=== PATIENT | female | born 2000 | race Hispanic/Latino ===

== ENCOUNTER 2019-11-24 12:11 | Emergency (ER) | payer OTHER, SELFPAY ==
[2019-11-24] MEDS ORDERED: NA CHLORIDE 0.9% 500 ML ONE (13:14)
--- NOTE | 2019-11-24 13:28 | RAD REPORT ---
EXAM DESCRIPTION: US - OB Limited - 11/24/2019 1:09 pm CLINICAL HISTORY: ABD CRAMPING, COMPARISON: No comparisons TECHNIQUE: Limited OB sonography performed. FINDINGS: Single intrauterine gestation is identified. Heart rate is 143 BPM. Placenta is primarily posterior and position with no abruption or marginal hematoma. Amniotic fluid volume is normal. No dedicated anatomic assessment performed. No gross abnormality seen. Internal os is closed. E xternal os is not well visualized. Cervix is at least 2.5 cm in length, possibly longer. Endovaginal sonography was not performed. IMPRESSION: Single grossly normal intrauterine gestation with normal heart rate of 143 BPM. No placenta or amniotic fluid abnormality. Cervical canal is at least 2.5 cm in length but is not optimally visualized at the external os. Inter nal os is closed.
[2019-11-24 13:34] LABS: Absolute Lymphocytes (CBC) 2.3 K/uL (0.7-4.9); Basophils % 0.3 % (0-1.3); Hematocrit 33.8 % (36.0-45.0); Lymphocytes % 20.4 % (15.3-44.8); MPV 9.3 fL (7.6-11.3); RBC Red Blood Cell Count 3.73 M/uL (3.86-4.86)
[2019-11-24 13:34] LABS: Urine Blood 3+ (NEG); Urine Glucose NEGATIVE (NEG); Urine Protein NEGATIVE (NEG); Urine Specific Gravity 1.015 (1.005-1.030); Urine pH 6.5 (5.0-7.0)
[2019-11-24] MEDS ORDERED: CEFTRIAXONE/SWI 1gm 1 GM/10 ML SYR ONE (13:40)
[2019-11-24 14:08] LABS: BUN Blood Urea Nitrogen 7 mg/dL (7-18); Bicarbonate 25 mmol/L (21-32); Glucose Level 117 mg/dL (74-106); HCG, Quantitative 28395 mIU/mL (1-3); Potassium 3.5 mmol/L (3.5-5.1); Sodium Level 139 mmol/L (136-145)
--- NOTE | 2019-11-24 15:17 | ER ---
Nurse's Notes [facility] Name: Taylor Ramos Age: 19 yrs Sex: Female : 2000 Arrival Date: 11/24/2019 Time: 12:11 Bed 23 Private MD: Diagnosis: Threatened Presentation: 11/23 12:17 Chief complaint: Patient states: Vaginal bleeding since today. Dark red with 1 little ca1 blood clot. Abdominal cramping. No history of . 17 weeks . Coronavirus screen: Client denies travel out of the [place] in the last 14 days. At this time, the client does not indicate any symptoms associated with coronavirus-19. Ebola Screen: Patient negative for fever greater than or equal to 101.5 degrees Fahrenheit, and additional compatible Ebola Virus Disease symptoms Patient denies exposure to infectious person. Patient denies travel to an Ebola-affected area in the 21 days before illness onset. No symptoms or risks identified at this time. Initial Sepsis Screen: Does the patient meet any 2 criteria? No. Patient's initial sepsis screen is negative. Does the patient have a suspected source of infection? No. Patient's initial sepsis screen is negative. Risk Assessment: Do you want to hurt yourself or someone else? Patient reports no desire to harm self or others. Onset of symptoms was November 24, 2019. 12:17 Method Of Arrival: Ambulatory ca1 12:17 Acuity: MAIA 3 ca1 Triage Assessment: 13:00 General: Appears in no apparent distress. comfortable, Behavior is calm, cooperative, bp appropriate for age. Pain: Complains of pain in abdomen. EENT: No deficits noted. Neuro: No deficits noted. Cardiovascular: No deficits noted. Respiratory: No deficits noted. GI: No signs and/or symptoms were reported involving the gastrointestinal system. : Reports vaginal bleeding that is. Derm: No deficits noted. Musculoskeletal: No deficits noted. 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 - Social history:: Smoking status: Patient denies any tobacco usage or history of. - Family history:: not pertinent. Screenin:00 Abuse screen: Denies threats or abuse. Denies injuries from another. Nutritional bp screening: No deficits noted. Tuberculosis screening: No symptoms or risk factors identified. Fall Risk None identified. Assessment: 13:00 General: SEE TRIAGE NOTE. PT RETURNED FROM [place] 14:21 Reassessment: ALL CURRENT ORDERS COMPLETED, INITIAL RESULTS INDICATE EARLY GROSSLY bp NORMAL INTRAUTERINE . DISPO PENDING. 15:17 Reassessment: PT D/C HOME AMBULATORY, DX WITH THREATENED . ORTHOSTATICS VS bp UNREMARKABLE. Vital Signs: 12:17 BP 124 / 79; Pulse 102; Resp 16; Temp 98.5(O); Pulse Ox 99% on R/A; Weight 76.2 kg (R); ca1 Height 5 ft. 5 in. (165.10 cm) (R); 13:00 BP 94 / 56; Pulse 79; Resp 16; Pulse Ox 97% ; bp 14:19 BP 95 / 60; Pulse 62; Resp 16; Pulse Ox 100% ; bp 14:50 BP 101 / 61 Supine; Pulse 69; bp 14:52 BP 95 / 55; Pulse 72; Resp 16; Temp 98.5; Pulse Ox 100% ; bp 12:17 Body Mass Index 27.96 (76.20 kg, 165.10 cm) ca1 ED Course: 12:11 Patient arrived in ED. as 12:19 Triage completed. ca1 12:20 Arm band placed on right wrist. ca1 12:28 aDvid Ackerman MD is Attending Physician. karina 13:00 Patient has correct armband on for positive identification. Placed in gown. Bed in low bp position. Call light in reach. Side rails up X2. 13:06 Rocael Velasquez, PIYUSH is Primary Nurse. bp 13:09 US OB Limited In Process Unspecified. EDMS 13:15 Inserted saline lock: 20 gauge in right antecubital area, using aseptic technique. bp Blood collected. 15:16 Rui Bess MD is Referral Physician. karina 15:16 No provider procedures requiring assistance completed. Patient did not have IV access bp during this emergency room visit. Administered Medications: 13:15 Drug: NS 0.9% 1000 ml Route: IV; Rate: 1 bolus; Site: right antecubital; bp 15:17 Follow up: IV Status: Completed infusion; IV Intake: 1000ml bp 13:28 Drug: Rocephin 1 grams Route: IV; Rate: per protocol; Site: right antecubital; bp 15:18 Follow up: IV Status: Completed infusion; IV Intake: 20ml bp Intake: 15:17 IV: 1000ml; Total: 1000ml. bp 15:18 IV: 20ml; Total: 1020ml. bp Outcome: 15:16 Discharge ordered by . karina 15:16 Discharged to home ambulatory. bp 15:16 Condition: stable 15:16 Discharge instructions given to patient, Instructed on discharge instructions, follow up and referral plans. medication usage, Demonstrated understanding of instructions, follow-up care, medications, Prescriptions given X 2. 15:21 Patient left the ED. iw Signatures: Dispatcher [employer] EDMS David Ackerman MD MD cha Martinez, Amelia as Williams, Irene, RN RN iw Rocael Velasquez RN RN bp Acob, Cheryl, RN RN ca1 Corrections: (The following items were deleted from the chart) 12:20 12:17 Chief complaint: Patient states: Vaginal bleeding since today. Dark red with 1 ca1 little blood clot. Abdominal cramping. No history of . ca1
--- NOTE | 2019-11-24 15:17 | EDPHYS ---
Physician Documentation [facility] Name: Taylor Ramos Age: 19 yrs Sex: Female : 2000 Arrival Date: 11/24/2019 Time: 12:11 Bed 23 Private MD: ED Physician David Ackerman HPI: 11/23 12:33 This 19 yrs old Female presents to ER via Ambulatory with complaints of karina Vaginal Bleeding - 17 wks, Abdominal Pain. 12:33 The patient presents with vaginal bleeding that is light. Onset: The symptoms/episode karina began/occurred 2 day(s) ago. Modifying factors: The symptoms are alleviated by nothing, the symptoms are aggravated by nothing. Associated signs and symptoms: The patient has no apparent associated signs or symptoms. Severity of symptoms: At their worst the symptoms were mild, in the emergency department the symptoms are unchanged. The patient is sexually active, reportedly has a single partner. The patient has not experienced similar symptoms in the past. 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 - Social history:: Smoking status: Patient denies any tobacco usage or history of. - Family history:: not pertinent. ROS: 12:33 Constitutional: Negative for fever, chills, and weight loss, Eyes: Negative for injury, karina pain, redness, and discharge, ENT: Negative for injury, pain, and discharge, Neck: Negative for injury, pain, and swelling, Cardiovascular: Negative for chest pain, palpitations, and edema, Respiratory: Negative for shortness of breath, cough, wheezing, and pleuritic chest pain, Abdomen/GI: Negative for abdominal pain, nausea, vomiting, diarrhea, and constipation, Back: Negative for injury and pain, : Negative for injury, bleeding, discharge, and swelling, Skin: Negative for injury, rash, and discoloration, Neuro: Negative for headache, weakness, numbness, tingling, and seizure. 12:33 MS/extremity: Negative for acute changes. Exam: 12:33 Constitutional: This is a well developed, well nourished patient who is awake, alert, karina and in no acute distress. Head/Face: Normocephalic, atraumatic. Eyes: Pupils equal round and reactive to light, extra-ocular motions intact. Lids and lashes normal. Conjunctiva and sclera are non-icteric and not injected. Cornea within normal limits. Periorbital areas with no swelling, redness, or edema. ENT: Nares patent. No nasal discharge, no septal abnormalities noted. Tympanic membranes are normal and external auditory canals are clear. Oropharynx with no redness, swelling, or masses, exudates, or evidence of obstruction, uvula midline. Mucous membranes moist. Neck: Trachea midline, no thyromegaly or masses palpated, and no cervical lymphadenopathy. Supple, full range of motion without nuchal rigidity, or vertebral point tenderness. No Meningismus. Chest/axilla: Normal chest wall appearance and motion. Nontender with no deformity. No lesions are appreciated. Cardiovascular: Regular rate and rhythm with a normal S1 and S2. No gallops, murmurs, or rubs. Normal PMI, no JVD. No pulse deficits. Respiratory: Lungs have equal breath sounds bilaterally, clear to auscultation and percussion. No rales, rhonchi or wheezes noted. No increased work of breathing, no retractions or nasal flaring. Abdomen/GI: Soft, non-tender, with normal bowel sounds. No distension or tympany. No guarding or rebound. No evidence of tenderness throughout. Back: No spinal tenderness. No costovertebral tenderness. Full range of motion. Skin: Warm, dry with normal turgor. Normal color with no rashes, no lesions, and no evidence of cellulitis. MS/ Extremity: Pulses equal, no cyanosis. Neurovascular intact. Full, normal range of motion. Neuro: Awake and alert, GCS 15, oriented to person, place, time, and situation. Cranial nerves II-XII grossly intact. Motor strength 5/5 in all extremities. Sensory grossly intact. Cerebellar exam normal. Normal gait. Psych: Awake, alert, with orientation to person, place and time. Behavior, mood, and affect are within normal limits. Vital Signs: 12:17 BP 124 / 79; Pulse 102; Resp 16; Temp 98.5(O); Pulse Ox 99% on R/A; Weight 76.2 kg (R); ca1 Height 5 ft. 5 in. (165.10 cm) (R); 13:00 BP 94 / 56; Pulse 79; Resp 16; Pulse Ox 97% ; bp 14:19 BP 95 / 60; Pulse 62; Resp 16; Pulse Ox 100% ; bp 14:50 BP 101 / 61 Supine; Pulse 69; bp 14:52 BP 95 / 55; Pulse 72; Resp 16; Temp 98.5; Pulse Ox 100% ; bp 12:17 Body Mass Index 27.96 (76.20 kg, 165.10 cm) ca1 MDM: 12:28 Patient medically screened. [facility] 14:44 Data reviewed: vital signs, nurses notes, lab test result(s), radiologic studies, karina ultrasound. Data interpreted: rn dialysis: not applicable for this patient encounter. rate is 62 beats/min, Pulse oximetry: on room air is 100 %. Test interpretation: by ED physician or midlevel provider: ECG, plain radiologic studies. Counseling: I had a detailed discussion with the patient and/or guardian regarding: the historical points, exam findings, and any diagnostic results supporting the discharge/admit diagnosis, lab results, radiology results, the need for outpatient follow up, for definitive care, an OB/Gyne specialist. Medical screen evaluation completed. EMTALA emergency medical condition absent. Medical screen evaluation completed. EMTALA emergency medical condition absent. Medical screen evaluation completed. EMTALA emergency medical condition absent. ED course: pelvic rest, follow up, return if worse. cont pnf. 11/23 12:33 Order name: Quantitative Hcg; Complete Time: 14:13 karina 11/23 12:33 Order name: Abo/rh Typing; Complete Time: 14:13 karina 11/23 12:33 Order name: Basic Metabolic Panel; Complete Time: 14:13 karina 11/23 12:33 Order name: CBC with Diff; Complete Time: 14:13 karina 11/23 12:33 Order name: Urine Culture [facility] 11/23 13:26 Order name: Urine Dipstick--Ancillary (enter results); Complete Time: 14:13 bd 11/23 12:33 Order name: Urine Test (obtain specimen); Complete Time: 13:25 karina 11/23 12:33 Order name: IV Saline Lock; Complete Time: 13:25 karina 08/03 12:33 Order name: Labs collected and sent; Complete Time: 13:25 karina 11/23 12:33 Order name: NPO; Complete Time: 13:25 karina 11/23 12:33 Order name: US OB Limited; Complete Time: 14:13 karina 11/23 13:26 Order name: Urine --Ancillary (enter results); Complete Time: 14:13 bd 11/23 12:33 Order name: Urine Dipstick-Ancillary (obtain specimen); Complete Time: 13:25 karina 11/23 14:46 Order name: Orthostatics; Complete Time: 15:15 [facility] Administered Medications: 13:15 Drug: NS 0.9% 1000 ml Route: IV; Rate: 1 bolus; Site: right antecubital; bp 15:17 Follow up: IV Status: Completed infusion; IV Intake: 1000ml bp 13:28 Drug: Rocephin 1 grams Route: IV; Rate: per protocol; Site: right antecubital; bp 15:18 Follow up: IV Status: Completed infusion; IV Intake: 20ml bp Disposition: 11/24/19 15:16 Discharged to Home. Impression: Threatened . - Condition is Stable. - Discharge Instructions: Threatened Miscarriage, Vaginal Bleeding During , Second Trimester, First Trimester of , Dbxo-hs-[id number], First Trimester of , Urinary Frequency, Adult, Threatened Miscarriage, Cltd-ow-Nuvd, Pelvic Rest. - Prescriptions for Vitamin 27- 0.8 mg Oral Tablet - take 1 tablet by ORAL route once daily; 30 tablet. Macrobid 100 mg Oral Capsule - take 1 capsule by ORAL route every 12 hours for 7 days; 14 capsule. - Medication Reconciliation Form, Thank You Letter, Antibiotic Education, Prescription Opioid Use form. - Follow up: Private Physician; When: 2 - 3 days; Reason: Recheck today's complaints, Continuance of care, Re-evaluation by your physician. Follow up: Rui Bess; When: 2 - 3 days; Reason: Recheck today's complaints, Re-evaluation by your physician. - Problem is new. - Symptoms have improved. Signatures: Dispatcher [employer] EDDavid Osorio MD MD cha Williams, Irene, RN RN iw Peltier, Brian, RN RN bp Acob, Cheryl RN PIYUSH ca1 Corrections: (The following items were deleted from the chart) 15:21 15:16 11/24/2019 15:16 Discharged to Home. Impression: Threatened . Condition iw is Stable. Discharge Instructions: Threatened Miscarriage, Vaginal Bleeding During , Second Trimester, Threatened Miscarriage, Vjko-ut-Fjxw, Pelvic Rest, First Trimester of , Axls-ps-Zufc, First Trimester of , Urinary Frequency, Adult. Prescriptions for Vitamin 27-0.8 mg Oral Tablet - take 1 tablet by ORAL route once daily; 30 tablet, Macrobid 100 mg Oral Capsule - take 1 capsule by ORAL route every 12 hours for 7 days; 14 capsule. and Forms are Medication Reconciliation Form, Thank You Letter, Antibiotic Education, Prescription Opioid Use. Follow up: Private Physician; When: 2 - 3 days; Reason: Recheck today's complaints, Continuance of care, Re-evaluation by your physician. Follow up: Rui Bess; When: 2 - 3 days; Reason: Recheck today's complaints, Re-evaluation by your physician. Problem is new. Symptoms have improved. karina
[2019-11-24 15:27] VITALS: TEMP 98.5
[2019-11-24 15:30] VITALS: O2SAT 100
[2019-11-24 15:32] VITALS: BP 95/55
== END 2019-11-24 15:21 | disposition home or self-care (01) ==
LOC: ER 12:11
DX: O20.0 Threatened abortion (principal); Z3A.17 17 weeks gestation of pregnancy
CPT/HCPCS: 87088; 85025; 87086; 80048; 36415; 86900; 81025; 86901; 84702; 81003; 76815; J0696; J7040; 96365; 96366; 99284

== ENCOUNTER 2020-04-09 04:46 | Emergency (ER) | payer OTHER ==
--- OUTSIDE RECORDS SUMMARY | 2020-04-09 04:47 | XMS REPORT | Continuity of Care Document ---
:2000 Author Organization [facility] t Address [address] [place] [address] [address] [place] [address] Care Team Providers Name Role Phone Dari Ayon Attending Clinician Problems This patient has no known problems. Allergies, Adverse Reactions, Alerts This patient has no known allergies or adverse reactions. Medications This patient has no known medications. Procedures This patient has no known procedures. Encounters Start End Encounter Admission Attending Care Care Encounter Source Date/Time Date/Time Type Type Clinicians Facility Department ID 2020-04-06 2020-04-06 Routine ROMANA Shen [id number] 13:36:05 14:14:20 Roshunda R METAL SLITTER [id number] Visit REGIONAL [id number] MATERNAL [id number] & CHILD 107 [facility] 2020-03-23 2020-03-23 Routine ROMANA Shen [id number] 12:45:23 13:00:23 Roshunda R METAL SLITTER [id number] Visit REGIONAL [id number] MATERNAL [id number] & CHILD 107 [facility] 2020-03-09 2020-03-09 Routine ROMANA Shen [id number] 13:05:18 13:37:11 Roshunda R METAL SLITTER [id number] Visit REGIONAL [id number] MATERNAL [id number] & CHILD 107 [facility] 2020-02-18 2020-02-18 Routine ROMANA Shen [id number] 09:39:27 10:17:14 Venkatnda R METAL SLITTER [id number] Visit REGIONAL [id number] MATERNAL [id number] & CHILD 107 [facility] 2020-02-05 2020-02-05 Telephone [facility] [id number] 00:00:00 00:00:00 Venkatnda R METAL SLITTER [id number] REGIONAL [id number] MATERNAL [id number] & CHILD 107 [facility] 2020-02-04 2020-02-04 Telephone [facility] [id number] 00:00:00 00:00:00 Venkatnda R METAL SLITTER [id number] [facility] [id number] MATERNAL [id number] & CHILD 107 [facility] Results This patient has no known results.
--- OUTSIDE RECORDS SUMMARY | 2020-04-09 04:47 | XMS REPORT | Summary of Care ---
:1999 Author Organization [facility] Address [address] [place] [address] Care Team Providers Name Role Phone Dari Shen Primary Care Provider Reason for Visit Reason Comments ROUTINE VISIT Encounter Details Date Type Department Care Team Description 02/03/2020 Routine [facility] RMP- Nohelia Shen upervision of high risk , antepartum (Primary Dx); Visit AMY Weller Primigravida in second trimester; [address] Flu vacci ne need; [address] Overweight (BMI 25.0-29.9) [place] [address] [phone] Allergies No Known Allergiesdocumented as of this encounter (statuses as of 02/03/2020) Medications Medication Sig Dispensed Refills Start Date End Date Status vit Take 1 Packet by 30 Each 6 11/06/2019 Active 77-imcq-ifdnv-dha mouth daily. (SELECT-OB + DHA) 29 mg iron-1 mg -250 mg combo packIndications: Supervision of high risk , antepartum documented as of this encounter (statuses as of 02/03/2020) Active Problems Problem Noted Date Gonorrhea in 09/19/2019 Rubella non-immune status, antepartum 2019 Overview: Address in Maternal varicella, non-immune 2019 Overview: Address in Screening examination for venereal disease 2019 Chlamydia infection during 2019 Supervision of high risk , antepartum 020 Primigravida in second trimester 09/16/2019 History of asthma 09/16/2019 Former smoker 09/16/2019 Overweight (BMI 25.0-29.9) 09/16/2019 Estimated Date of Delivery Comments Yes 05/02/2020 Based on last menstr ual period of 07/27/2019 (Approximate) documented as of this encounter (statuses as of 02/03/2020) Resolved Problems Problem Noted Date Resolved Date Gonorrhea 2019 09/19/2019 documented as of this encounter (statuses as of 02/03/2020) Immunizations Name Administration Dates Next Due BCG 1999 DTAP 10/30/2003, 11/18/2001 DTP 03/22/2000, 01/17/2000, 1999 HEPATITIS A 11/25/2009, 06/09/2008 HIB 4 Dose Schedule 11/18/2001, 03/22/2000, 01/17/2000, 1999 HPV 11/07/2011, 02/03/2010, 11/25/2009 Hep B, Adol or Pedi Dosage 03/22/2000, 01/17/2000, 0 Influenza Virus Vaccine Quad .5 mL IM 02/03/2020 6+ MO Influenza Virus Vaccine Quad IM 3+ YRS 05/12/2015 MMR 10/30/2003, 11/27/2000 Meningococcal Vaccine 11/07/2011 Polio (IPV/OPV) 10/30/2003, 03/22/2000, 01/17/2000, 1999, 1999 TDAP 11/07/2011 Varicella (varivax)(chicken pox) 06/09/2008, 07/27/2003 documented as of this encounter Social History Tobacco Use Types Packs/Day Years Used Date Never Smoker Smokeless Tobacco: Never Used Alcohol Use Drinks/Week oz/Week Comments No Estimated Date of Delivery Comments Yes 05/02/2020 Based on last menstr ual period of 07/27/2019 (Approximate) Sex Assigned at Date Recorded Not on file COVID-19 Exposure Response Date Recorded In the last month, have you been in contact with No / Unsure 02/03/2020 10:05 AM CDT someone who was confirmed or suspected to have Coronavirus / COVID-19? documented as of this encounter Last Filed Vital Signs Vital Sign Reading Time Taken Comments Blood Pressure 104/60 02/03/2020 10:05 AM CDT Pulse 68 02/03/2020 10:05 AM CDT Temperature 36.5 C (97.7 F) 02/03/2020 10:05 AM CDT Respiratory Rate 16 02/03/2020 10:05 AM CDT Oxygen Saturation - - Inhaled Oxygen Concentration - - Weight 84.9 kg (187 lb 1.6 oz) 02/03/2020 10:05 AM CDT Height 165.1 cm (5' 5") 02/03/2020 10:05 AM CDT Body Mass Index 31.14 02/03/2020 10:05 AM CDT documented in this encounter Progress Notes Nohelia Shen, PIN PULLER - 02/03/2020 9:45 AM CDT Chief complaint: Chief Complaint Patient presents with ROUTINE VISIT HPI CC: Follow Up Visit Taylor Victor is a 19 year old, , /White female. Patient's last menstrual period was 07/27/2019 (approximate). She is 27w2d with an intrauterine . Her estimated date of delivery is 05/02/2020, by Last Menstrual Period. She has no complaints today. She reports +FM and denies contractions, LOF and bleeding today. Will review labs and f/u as needed. OB/ER, PIH, PTL and movement precautions given. .abuuse Histories OB History Para Term AB Living 1 SAB TAB Ectopic Multiple Live Births # Outcome Date GA Lbr Dano/2nd Weight Sex Delivery Anes PTL Lv 1 Current Past Medical History: Diagnosis Date Asthma last flare up at age 15 yrs of age. Gonorrhea 2019 Screening examination for venereal disease 2019 Family History Problem Relation Age of Onset Hypertension Maternal Grandmother No Significant Medical Problems Mother No Significant Medical Problems Father No Significant Medical Problems Sister No Significant Medical Problems Brother Arthritis NoFHx Asthma NoFHx defects NoFHx Breast Cancer NoFHx Colon Cancer NoFHx Ovarian Cancer NoFHx Uterine Cancer NoFHx Cancer NoFHx Depression NoFHx Diabetes NoFHx Genetic NoFHx Heart NoFHx High cholesterol NoFHx Mental retardation NoFHx Neurological NoFHx Osteoporosis NoFHx Psychiatry NoFHx Family Status Relation Name Status MGMo Alive Mo Alive Fa Alive Sis Alive Bro Alive NoFHx (Not Specified) No past surgical history on file. Social History Socioeconomic History Marital status: Single Spouse name: Not on file Number of children: Not on file Years of education: Not on file Highest education level: Not on file Occupational History Not on file Social Needs Financial resource strain: Not on file Food insecurity Worry: Not on file Inability: Not on file Transportation needs Medical: Not on file Non-medical: Not on file Tobacco Use Smoking status: Never Smoker Smokeless tobacco: Never Used Substance and Sexual Activity Alcohol use: No Drug use: No Sexual activity: Yes Partners: Male control/protection: None Comment: last sexual intercourse 09/11/2019 Lifestyle Physical activity Days per week: Not on file Minutes per session: Not on file Stress: Not on file Relationships Social connections Talks on phone: Not on file Gets together: Not on file Attends confucianism service: Not on file Active member of club or organization: Not on file Attends meetings of clubs or organizations: Not on file Relationship status: Not on file Intimate partner violence Fear of current or ex partner: Not on file Emotionally abused: Not on file Physically abused: Not on file Forced sexual activity: Not on file Other Topics Concern Not on file Social History Narrative Lives with both parent. No abuse / violence . No smoke exposure. 4 inside dogs. No inside cats. Social History Substance and Sexual Activity Sexual Activity Yes Partners: Male control/protection: None Comment: last sexual intercourse 09/11/2019 Labs Labs are pending. Radiology No new radiology. Allergies Taylor has No Known Allergies. Medications Taylor has a current medication list which includes the following prescription(s): vit 73-hulr-kkdnb-dha. Review of Systems BP 104/60 (BP Location: Right arm, Patient Position: Sitting, BP CUFF SIZE: Adult Medium) | Pulse 68 | Temp 36.5 C (97.7 F) (Oral) | Resp 16 | Ht 5' 5" (1.651 m) | Wt 187 lb 1.6 oz (84.9 kg) | LMP 07/27/2019 (Approximate) | BMI 31.14 kg/m Pregravid BMI: 27.46 Physical Exam Assessment/Plan Supervision of high risk , antepartum (primary encounter diagnosis) Primigravida in second trimester Comment: Routine Visit Plan: POCT URINALYSIS W SPECIFIC GRAVITY, Glucose 1 Hour Post Prandial, CBC with Differential, HIV 1/2 AG-AB WITH REFLEX, GALV ONLY - SYPHILIS IGG/IGM, TDAP VACCINE, >10 YRS, IM Denies zika virus risk, signs and symptoms such as fever,rash,joint pain, conjunctivitis (red eyes), muscle pain, headaches; outside [place] travel to areas affected by zika, and FOB exposure to zika.Educated on use of mosquito repellent. Covid x12 screening done, screening results are negative. Flu vaccine need Comment: patient desires Plan: FLU VACC([id number]), 6+ MONTHS, IM, QUAD (FLUZONE/FLULAVAL/FLUARIX) Overweight (BMI 25.0-29.9) Comment: BMI: 27.46 Plan: Patient encouraged to limit weight gain and advised to eat healthy diet, fruits, vegetables, increased fiber and water intake and protein low in fat. Encouraged exercise for 30 min everyday; begin regimen with caution to prevent injury. Encouraged to decrease BMI to <25. Patient educated onthe effects of chronic health problems of obesity on future pregnancies and/or long term acute care registered nurse health. Return to clinic in 2 weeks. Discussed treatment options. Medications as ordered. Reviewed patient instructions and provided printed copy. This visit did not involve counseling and coordination that comprised more than 50% of the visit time. AMY Virgen 02/03/2020 10:27 AM documented in this encounter Plan of Treatment Date Type Specialty Care Team Description 02/18/2020 Routine Visit [facility]ell[facility] Dari Shen FNP [address] [address] [phone] Name Type Priority Associated Diagnoses Order S chedule HIV 1/2 AG-AB WITH LAB Routine Supervision of high Ex pected: 02/03/2020, REFLEX risk , Expires: antepartum GALV ONLY - LAB Routine Supervision of high Expected : 02/03/2020, SYPHILIS IGG/IGM risk , Expires: 02/02/2021 antepartum TDAP VACCINE, >10 IMMUNIZATION/IN Routine Supervision of high 1 Occurrences YRS, IM JECTION risk , starting antepartum until 0 Health Maintenance Due Date Last Done Comments MENINGOCOCCAL B VACCINES (1 09/15/2020 Post poned from of 2 - Risk Bexsero 2-dose 09/16 ( or series) ) WELL CARE VISIT: 12-09/15/2020 09/16/2019 YEARS (yearly) Depression Screening 11/05/2020 11/06/2019 CHLAMYDIA SCREENING 12/03/2020 12/04/2019, 09/16/2019, 09/16/2019 DTaP,Tdap,and Td Vaccines 11/06/2021 11/07/2011, 10/30/2003 , (7 - Td) 11/18/2001, Additional history exists VARICELLA VACCINES Completed 06/09/2008, 07/27/2003 HPV VACCINES Completed 11/07/2011, 02/03/2010, 11/25/2009 MENINGOCOCCAL VACCINE Aged Out 11/07/2011 No longer eligible based on patient 's age to complete this topic INFLUENZA VACCINE Completed 02/03/2020, 05/12/2015 PNEUMOCOCCAL 0-64 YEARS Aged Out No longe r eligible COMBINED SERIES based on patient 's age to complete this topic documented as of this encounter Procedures Procedure Name Priority Date/Time Associated Diagnosis Comme nts FLU VACC Routine 02/03/2020 10:26 Flu vaccine need ([id number]), 6+ AM CDT MONTHS, IM, QUAD POCT URINALYSIS Routine 02/03/2020 Supervision of high Resul ts for this risk , procedure ar e in antepartum the results section. documented in this encounter Results POCT URINALYSIS W SPECIFIC GRAVITY (02/03/2020) Pathologist Sig nature POCT U SP GRAV . 1.005 - 1.025 mg/dl POCT PH U . 5 - 8 mg/dl POCT U LEUK EST . Negative - Negative POCT U NIT . Negative - Negative POCT U PROT TRACE Negative - Negative POCT U GLU NEG Negative - Negative POCT U KETONE . Negative - Negative POCT U UROBILI . 0.2 - 1 mg/dl POCT U BILI . Negative - Negative POCT U BLD . Negative - Negative POCT U COLOR POCT U APPEAR Specimen Urine - URINE, CLEAN CATCH documented in this encounter Visit Diagnoses Diagnosis Supervision of high risk , ante - Primary Primigravida in second trimester Flu vaccine need Need for prophylactic vaccination and in oculation against influenza Overweight (BMI 25.0-29.9) Overweight documented in this encounter Insurance Payer Benefit Plan / Subscriber ID Effective Phone Address T ype Group Dates [facility] [id number] 2019-Prese P O TIERRA X [facility] MOM nt [id number] HEALTH PLAN [place] [phone] 1 documented as of this encounter
--- OUTSIDE RECORDS SUMMARY | 2020-04-09 04:48 | XMS REPORT | Summary of Care ---
:1999 Author Organization [facility] Address [address] [place] [address] Care Team Providers Name Role Phone Dari Shen Primary Care Provider Reason for Visit Reason Comments Anemia Encounter Details Date Type Department Care Team Description 02/04/2020 Telephone [facility] [employer] RMP- A Nohelia Billingsley FNP Anemia [address] [facility] [address] [place] [address] [address] [place] [address] [phone] Allergies No Known Allergiesdocumented as of this encounter (statuses as of 02/04/2020) Medications Medication Sig Dispensed Refills Start Date End Date Status vit Take 1 Packet by 30 Each 6 11/06/2019 Active 17-idsf-tnpcb-dha mouth daily. (SELECT-OB + DHA) 29 mg iron-1 mg -250 mg combo packIndications: Supervision of high risk , antepartum ferrous sulfate 325 mg Take 1 tablet by 60 tablet 3 02/04/2020 Active (65 mg iron) mouth 2 (two) tabletIndications: times daily. Anemia of mother in , antepartum ascorbic acid, vitamin Take 1 tablet by 90 tablet 3 02/04/2020 Active C, 500 mg mouth 3 (three) tabletIndications: times daily. Anemia of mother in , antepartum documented as of this encounter (statuses as of 02/04/2020) Active Problems Problem Noted Date Gonorrhea in [...] as of this encounter (statuses as of 02/04/2020) Resolved Problems Problem Noted Date Resolved Date Gonorrhea 2019 09/19/2019 documented as of this encounter (statuses as of 02/04/2020) Immunizations Name Administration Dates Next Due BCG [...] of this encounter Last Filed Vital Signs Not on filedocumented in this encounter Miscellaneous Notes Telephone Encounter - Nohelia Shen FNP - 02/04/2020 7:43 AM CDTPlease notify patient of anemia. Iron and Vit C RX sent, continue PNV as ordered. documented in this encounter Plan of Treatment Date Type Specialty Care Team Description 02/18/2020 Routine Visit [facility]ell[facility] Dari Shen FNP [address] [address] [phone] Health Maintenance Due Date Last Done Comments MENINGOCOCCAL B VACCINES (1 09/15/2020 Post poned from of 2 - Risk Bexsero 2-dose 09/16 ( or series) ) WELL CARE VISIT: 12-21 09/15/2020 09/16/2019 YEARS (yearly) Depression Screening 11/05/2020 11/06/2019 [...] this topic documented as of this encounter Results Not on filedocumented in this encounter Visit Diagnoses Diagnosis Anemia of mother in , antepartu m - Primary Anemia, antepartum documented in this encounter Insurance Payer Benefit Plan / Subscriber ID Effective Phone Address [facility] Group Dates [facility] [id number] 2019-Francisco [employer] PLAN MOM nt [id number] HEALTH PLAN [place] [place] [facility] [place] [address] documented as of this encounter
--- OUTSIDE RECORDS SUMMARY | 2020-04-09 04:48 | XMS REPORT | Summary of Care ---
:1999 Author Organization [facility] Address [address] [place] [address] Care Team Providers Name Role Phone Dari Shen Primary Care Provider Reason for Visit Reason Comments Anemia Encounter Details Date Type Department Care Team Description 02/04/2020 Telephone [facility] [employer] RMP- A Nohelia Billingsley FNP Anemia [address] [place] [address] [place] [address] [phone] Allergies No Known Allergiesdocumented as of this encounter (statuses as of 02/05/2020) Medications Medication Sig Dispensed Refills Start Date End Date Status vit Take 1 Packet by 30 Each 6 11/06/2019 Active 81-kmpz-kwhig-dha mouth daily. (SELECT-OB + DHA) 29 mg [...] as of this encounter (statuses as of 02/05/2020) Active Problems Problem Noted Date Gonorrhea in [...] as of this encounter (statuses as of 02/05/2020) Resolved Problems Problem Noted Date Resolved Date Gonorrhea 2019 09/19/2019 documented as of this encounter (statuses as of 02/05/2020) Immunizations Name Administration Dates Next Due BCG [...] this encounter Miscellaneous Notes Telephone Encounter - Clair Nesbitt LVN - 02/05/2020 11:26 AM CDTNatnikhil Ammy Ramos is a 19 year old female Patient informed of results and new orders, verbalized understanding. Telephone Encounter - Jonas Chang RN - 02/05/2020 10:53 AM CDTCalled, patient not available per Duyen, patient's mother. Duyen states she will have her daughter call back. JONAS CHANG RN 02/05/2020 10:55 AM Telephone Encounter - Clair Nesbitt LVN - 02/05/2020 8:24 AM CDTNatnikhil Ammy Ramos is a 19 year old female 2nd attempt to call patient, no answer, left vm. elephone Encounter - Jonas Chang RN - 02/04/2020 11:51 AM CDTAttempt #1. Called, no answer. Left VM for patient to return call. JONAS CHANG RN 02/04/202011:52 AM Telephone Encounter - Nohelia Shen FNP - 02/04/2020 7:43 AM CDTPlease notify patient of anemia. Iron and Vit C RX sent, continue PNV as ordered. documented in this encounter Plan of Treatment Date Type Specialty Care Team Description 02/18/2020 Routine Visit [facility] Satellites Dari Shen FNP [address] [address] [phone] Health Maintenance Due Date Last Done Comments [...] Effective Phone Address T ype Group Dates [facility] [id number] 2019-Prese P O TIERRA X [facility]ALTH [facility] MOM nt [id number] HE[place], [place] [address] documented as of this encounter
--- OUTSIDE RECORDS SUMMARY | 2020-04-09 04:48 | XMS REPORT | Summary of Care ---
:1999 Author Organization [facility] Address [address] [place] [address] Care Team Providers Name Role Phone Dari Shen Primary Care Provider Reason for Visit Reason Comments Anemia Encounter Details Date Type Department Care Team Description 02/04/2020 Telephone [facility] [email or web address] RMP- A Nohelia Billingsley FNP Anemia [address] [facility] [address] [place] [address] [address] [place] [address] [phone] Allergies No Known Allergiesdocumented as of this encounter (statuses as of 02/05/2020) Medications Medication Sig Dispensed Refills Start Date End Date Status vit Take 1 Packet by 30 Each 6 11/06/2019 Active 01-otzl-rfvsc-dha mouth daily. (SELECT-OB + DHA) 29 mg [...] this encounter Miscellaneous Notes Telephone Encounter - Jonas Chang RN - 02/05/2020 10:53 AM CDTCalled, patient not available per Duyen, patient's mother. Duyen states she will have her daughter call back. JONAS CHANG RN 02/05/2020 10:55 AM Telephone Encounter - Clair Nesbitt LVN - 02/05/2020 8:24 AM CDTNataly Ammy Ramos is a 19 year old [...] OB Satellites Dari Shen FNP [address] [address] [phone] Health Maintenance Due Date Last Done Comments [...] Effective Phone Address T ype Group Dates [facility] [id number] 2019-Pressam P O TIERRA X [facility]ALTH [facility] MOM nt [id number] HE[place] PL[place], [place] [address] documented as of this encounter
--- OUTSIDE RECORDS SUMMARY | 2020-04-09 04:48 | XMS REPORT | Summary of Care ---
:1999 Author Organization [facility] Address [address] [place] [address] Care Team Providers Name Role Phone Dari Shen Primary Care Provider Reason for Visit Reason Comments Anemia Encounter Details Date Type Department Care Team Description 02/04/2020 Telephone [facility] [employer] RMP- A Nohelia Billingsley FNP Anemia [address] [facility] [address] [place] [address] [address] [place] [address] [phone] Allergies No Known Allergiesdocumented as of this encounter (statuses as of 02/04/2020) Medications Medication Sig Dispensed Refills Start Date End Date Status vit Take 1 Packet by 30 Each 6 11/06/2019 Active 74-gsjh-fcfmh-dha mouth daily. (SELECT-OB + DHA) 29 mg [...] Telephone Encounter - Jonas Chang RN - 02/04/2020 [...] Visit OB Satellites Dari Shen FNP [address] [address] [phone] Health Maintenance Due Date Last Done Comments [...] Effective Phone Address T ype Group Dates [facility] [id number] 2019-Prese P O TIERRA X [facility] MOM nt [id number] [place] [address] documented as of this encounter
--- OUTSIDE RECORDS SUMMARY | 2020-04-09 04:48 | XMS REPORT | Summary of Care ---
:1999 Author Organization [facility] Address [address] [place] [address] Care Team Providers Name Role Phone Dari Shen Primary Care Provider Reason for Visit Reason Comments ROUTINE VISIT Encounter Details Date Type Department Care Team Description 02/03/2020 Routine [facility] RMP- Nohelia Shen upervision of high risk , antepartum (Primary Dx); Visit AMY Weller Primigravida in second trimester; [address] Flu vacci ne need; [address] Overweight (BMI 25.0-29.9) [place] [address] [phone] Allergies No Known Allergiesdocumented as of this encounter (statuses as of 02/03/2020) Medications Medication Sig Dispensed Refills Start Date End Date Status vit Take 1 Packet by 30 Each 6 11/06/2019 Active 78-wlhx-nhstk-dha mouth daily. (SELECT-OB + DHA) 29 mg [...] in this encounter Progress Notes Nohelia Shen, EMERGENCY SERVICE WORKER - 02/03/2020 9:45 AM CDT Chief complaint: [...] file Gets together: Not on file Attends yarsani service: Not on file Active member of [...] list which includes the following prescription(s): vit 81-nlft-gpbys-dha. 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 Return to clinic in 2 weeks. [...] Visit OB Satellites Dari Shen FNP [address] [address] [phone] Name Type Priority Associated Diagnoses Date/Ti me Glucose 1 Hour Post LAB Routine Supervision of high moody isk 02/03/2020 11:11 AM Prandial , antepartum CDT CBC with Differential LAB Routine Supervision of high risk 02/03/2020 11:11 AM , antepartum CDT Name Type Priority Associated Diagnoses Order S chedule HIV 1/2 AG-AB WITH LAB Routine Supervision of Ex pected: 02/03/2020, REFLEX risk , Expires: [...] VACC Routine 02/03/2020 10:26 Flu vaccine need ([id number]), 6+ AM CDT MONTHS, IM, QUAD POCT [...] Effective Phone Address T ype Group Dates [facility] [id number] 2019-Prese P O TIERRA X [facility]ALTH [facility] MOM nt [id number] HEALTH PLAN [place], [place] [phone] documented as of this encounter
--- OUTSIDE RECORDS SUMMARY | 2020-04-09 04:48 | XMS REPORT | Summary of Care ---
:1999 Author Organization [facility] Address [address] [place] [address] Care Team Providers Name Role Phone Dari Shen Primary Care Provider Reason for Visit Reason Comments Anemia Encounter Details Date Type Department Care Team Description 02/04/2020 Telephone [facility] [employer] RMP- A Nohelia Billingsley FNP Anemia [address] [facility] [address] [place] [address] [address] [place] [address] [phone] Allergies No Known Allergiesdocumented as of this encounter (statuses as of 02/05/2020) Medications Medication Sig Dispensed Refills Start Date End Date Status vit Take 1 Packet by 30 Each 6 11/06/2019 Active 18-gcjx-eqzjo-dha mouth daily. (SELECT-OB + DHA) 29 mg [...] Visit OB Satellites Dari Shen FNP [address] [place], [place] [address] [phone] Health Maintenance Due Date Last Done Comments [...] Phone Address T ype Group Dates [facility] [id number] 2019-Francisco P O TIERRA X [facility] MOM nt [phone] HE[place] [address] documented as of this encounter
--- OUTSIDE RECORDS SUMMARY | 2020-04-09 04:48 | XMS REPORT | Summary of Care ---
:1999 Author Organization [facility] Address [address] [place] [address] Care Team Providers Name Role Phone Dari Shen ENGAGEMENT EXECUTIVE Primary Care Provider Reason for Visit Reason Comments Results returning nurses call Encounter Details Date Type Department Care Team Description 02/05/2020 Telephone [facility]- Nohelia Shen Re sults (returning [facility] nurses call) [address] [facility] [address] [place] [address] [place], [place] [phone] [address] [phone] Allergies No Known Allergiesdocumented as of this encounter (statuses as of 02/05/2020) Medications Medication Sig Dispensed Refills Start Date End Date Status vit Take 1 Packet by 30 Each 6 11/06/2019 Active 02-drjf-dpzrd-dha mouth daily. (SELECT-OB + DHA) 29 mg [...] Encounter - Clair Nesbitt LVN - 02/05/2020 11:28 AM CDTDuplicate encounter. elephone Encounter - Joi Sanchez - 02/05/2020 11:23 AM CDTNataly Ammy Ramos is a 19 year old female Patient returning nurses call on regards results, please call [phone] (home) documented in this encounter Plan of Treatment Date Type Specialty Care Team Description 02/18/2020 Routine Visit OB Satellites Dari Shen, ENGAGEMENT EXECUTIVE [address] [place] [address] 15 [phone] Health Maintenance Due Date Last Done Comments [...] Results Not on filedocumented in this encounter Insurance Payer Benefit Plan / Subscriber ID Effective Phone Address T ype Group Dates [facility] [id number] 2019-Francisco P O TIERRA X [facility]IP [facility] HEALTH PLAN MOM nt [id number] HEALTH PLAN [place] [id number] documented as of this encounter
--- OUTSIDE RECORDS SUMMARY | 2020-04-09 04:49 | XMS REPORT | Summary of Care ---
:1999 Author Organization [facility] Address [address] [place] [address] Care Team Providers Name Role Phone Dari Shen Primary Care Provider Reason for Visit Reason Comments ROUTINE VISIT Encounter Details Date Type Department Care Team Description [facility] upervision of high risk , antepartum (Primary Dx); Visit AMY Weller Primigravida in second trimester; [address] [place] [address] Anemia of mother in , antepartum; [address] [place] Need for Tdap vaccination; [place], [place] Overweight (BMI 25.0-29.9) [id number] [phone] Allergies No Known Allergiesdocumented as of this encounter (statuses as of 02/18/2020) Medications Medication Sig Dispensed Refills Start Date End Date Status vit Take 1 Packet by 30 Each 6 11/06/2019 Active 53-royz-zzcsm-dha mouth daily. (SELECT-OB + DHA) 29 mg [...] as of this encounter (statuses as of 02/18/2020) Active Problems Problem Noted Date Gonorrhea in [...] as of this encounter (statuses as of 02/18/2020) Resolved Problems Problem Noted Date Resolved Date Gonorrhea 2019 09/19/2019 documented as of this encounter (statuses as of 02/18/2020) Immunizations Name Administration Dates Next Due BCG [...] (IPV/OPV) 10/30/2003, 03/22/2000, 01/17/2000, 1999, 1999 TDAP 02/18/2020, 11/07/2011 Varicella (varivax)(chicken pox) 06/09/2008, 07/27/2003 documented [...] been in contact with No / Unsure 02/18/2020 9:51 AM CDT someone who was confirmed or suspected to have Coronavirus / COVID-19? documented as of this encounter Last Filed Vital Signs Vital Sign Reading Time Taken Comments Blood Pressure 101/57 02/18/2020 9:52 AM CDT Pulse 66 02/18/2020 9:52 AM CDT Temperature 36.1 C (97 F) 02/18/2020 9:52 AM CDT Respiratory Rate 16 02/18/2020 9:52 AM CDT Oxygen Saturation - - Inhaled Oxygen Concentration - - Weight 86.6 kg (191 lb) 02/18/2020 9:52 AM CDT Height 165.1 cm (5' 5") 02/18/2020 9:52 AM CDT Body Mass Index 31.78 02/18/2020 9:52 AM CDT documented in this encounter Progress Notes Cora Mesa RN - 02/18/2020 9:30 AM CDTPt [place] has been scheduled for IOL on 05/02/2019 @ 40.0wks, 0800. Teresita Eaton RN - 02/18/2020 9:30 AM CDTPatient provided with 28 weeks packet; stressed the importance of the kick count of 10 x within 2 hours; patient verbalized understanding. Tdap given IM to right deltoid per aseptic tech; site massaged; band-aid applied; tolerated well; VIS given and reviewed with patient at this time. Shared decision plan completed today. Reviewed s/s of labor. PHQ2 done at this time. Patient denies any complications at this time. Nohelia Resendiz FNP - 02/18/2020 9:30 AM CDT Chief complaint: Chief Complaint Patient presents with ROUTINE VISIT HPI CC: Follow Up Visit Taylor Victor is a 19 year old, , /White female. Patient's last menstrual period was 07/27/2019 (approximate). She is 29w3d with an intrauterine . Her estimated date of delivery is 05/02/2020, by Last Menstrual Period. She has no complaints today. She reports +FM and denies contractions, LOF and bleeding today. Will review labs and f/u as needed. OB/ER, PIH, PTL and movement precautions given. Patient denies current or past physical, sexual or emotional abuse. Histories OB History Para Term AB Living [...] file Gets together: Not on file Attends yazidi service: Not on file Active member of [...] medication list which includes the following prescription(s): ascorbic acid (vitamin c), ferrous sulfate, and vit 07-cjch-xjpld-dha. Review of Systems Eyes: Negative for visual disturbance. Cardiovascular: Negative for leg swelling. Gastrointestinal: Negative for abdominal pain, nausea and vomiting. Genitourinary: Negative for vaginal bleeding, vaginal discharge and pelvic pain. Neurological: Negative for headaches. BP 101/57 (BP Location: Right arm, Patient Position: Sitting, BP CUFF SIZE: Adult Medium) | Pulse 66 | Temp 36.1 C (97 F) (Oral) | Resp 16 | Ht 5' 5" (1.651 m) | Wt 191 lb (86.6 kg) | LMP 07/27/2019 (Approximate) | BMI 31.78 kg/m Pregravid BMI: 27.46 Physical Exam PHYSICAL: General Exam: Neurological: Normal Abdomen: Normal Extremities: Normal Pelvic Exam: Uterus: 29cm Weeks Assessment/Plan Supervision of high risk , antepartum (primary encounter diagnosis) Primigravida in second trimester Comment: Routine Visit Plan: HIV 1/2 AG-AB WITH REFLEX, GALV ONLY - SYPHILIS IGG/IGM, POCT URINALYSIS W SPECIFIC GRAVITY Denies zika virus risk, signs and symptoms such as fever,rash,joint pain, conjunctivitis (red eyes), muscle pain, headaches; outside [place] travel to areas affected by zika, and FOB exposure to zika.Educated on use of mosquito repellent. Covid x12 screening done, screening results are negative. Anemia of mother in , antepartum Comment: taking vitamins, Iron pills and Vit C Plan: patient encouraged to continue taking as directed. Need for Tdap vaccination Comment: patient desires Plan: TDAP VACCINE, >10 YRS, IM Overweight (BMI 25.0-29.9) Comment: See BMI Plan: Patient encouraged to limit weight gain and advised to eat healthy diet, fruits, vegetables, increased fiber and water intake and protein low in fat. Encouraged exercise for 30 min everyday; begin regimen with caution to prevent injury. Encouraged to decrease BMI to <25. Patient educated onthe effects of chronic health problems of obesity on future pregnancies and/or care home health. Return to clinic in 2 weeks. Discussed treatment options. Medications as ordered. Reviewed patient instructions and provided printed copy. This visit did not involve counseling and coordination that comprised more than 50% of the visit time. AMY Virgen 02/18/2020 10:04 AM documented in this encounter Plan of Treatment Date Type Specialty Care Team Description 03/03/2020 Routine Visit OB Satellites Dari Shen FNP [address] [address] 15 [phone] Name Type Priority Associated Diagnoses Date/Ti me HIV 1/2 AG-AB WITH LAB Routine Supervision of high ri sk 02/18/2020 9:50 AM CDT REFLEX , antepartum GALV ONLY - SYPHILIS LAB Routine Supervision of high risk 02/18/2020 9:50 AM CDT IGG/IGM , antepartum Health Maintenance Due Date Last Done Comments MENINGOCOCCAL B VACCINES (1 09/15/2020 Post poned from of 2 - Risk Bexsero 2-dose 09/16 ( or series) ) WELL CARE VISIT: 12-09/15/2020 09/16/2019 YEARS (yearly) CHLAMYDIA SCREENING 12/03/2020 12/04/2019, 09/16/2019, 09/16/2019 Depression Screening 02/17/2021 02/18/2020 DTaP,Tdap,and Td Vaccines 11/06/2021 11/07/2011, 10/30/2003 , [...] Name Priority Date/Time Associated Diagnosis Comme nts TDAP VACCINE, >11 Routine 02/18/2020 10:00 Need for Tdap YRS, IM AM CDT vaccination POCT URINALYSIS Routine 02/18/2020 Supervision of high Resul ts for this risk , procedure ar e in antepartum the results section. documented in this encounter Results POCT URINALYSIS W SPECIFIC GRAVITY (02/18/2020) Pathologist Sig nature POCT U SP GRAV . 1.005 - 1.025 mg/dl POCT PH U . 5 - 8 mg/dl POCT U LEUK EST . Negative - Negative POCT U NIT . Negative - Negative POCT U PROT trace Negative - Negative POCT U GLU neg Negative - Negative POCT U KETONE . Negative - Negative POCT U UROBILI . 0.2 - 1 mg/dl POCT U BILI . Negative - Negative POCT U BLD . Negative - Negative POCT U COLOR POCT U APPEAR Specimen Urine - URINE, CLEAN CATCH documented in this encounter Visit Diagnoses Diagnosis Supervision of high risk , ante - Primary Primigravida in second trimester Anemia of mother in , antepartu m Anemia, antepartum Need for Tdap vaccination Need for prophylactic vaccination with c ombined zdiqjmzlpd-rnvnqbz-uzpjrbgqh (DTP) vaccine Overweight (BMI 25.0-29.9) Overweight documented in this encounter Insurance Payer Benefit Plan / Subscriber ID Effective Phone Address T ype Group Dates [facility] [id number] 2019-Prese P O TIERRA X [facility] MOM nt [id number] HEALTH PLAN [place], [place] [phone] 1 documented as of this encounter
--- OUTSIDE RECORDS SUMMARY | 2020-04-09 04:49 | XMS REPORT | Summary of Care ---
:1999 Author Organization [facility] Address [address] [place] [address] Care Team Providers Name Role Phone Dari Shen Primary Care Provider Reason for Visit Reason Comments ROUTINE VISIT Encounter Details Date Type Department Care Team Description 04/06/2020 [facility] upervision of high risk , antepartum (Primary Dx); Visit AMY Weller Primigravida in third trimester; [address] [place] [address] Anemia of mother in , antepartum; [address] [place] Overweight (BMI 25.0-29.9) [place] [id number] Allergies No Known Allergiesdocumented as of this encounter (statuses as of 04/06/2020) Medications Medication Sig Dispensed Refills Start Date End Date Status vit Take 1 Packet by 30 Each 6 11/06/2019 Active 27-ueqz-vqvou-dha mouth daily. (SELECT-OB + DHA) 29 mg [...] as of this encounter (statuses as of 04/06/2020) Active Problems Problem Noted Date Anemia of mother in , antepartum 03/09/2020 Gonorrhea in 09/19/2019 Rubella non-immune status, antepartum [...] as of this encounter (statuses as of 04/06/2020) Resolved Problems Problem Noted Date Resolved Date Gonorrhea 2019 09/19/2019 documented as of this encounter (statuses as of 04/06/2020) Immunizations Name Administration Dates Next Due BCG [...] been in contact with No / Unsure 04/06/2020 1:50 PM MANAGER BABY someone who was confirmed or suspected to have Coronavirus / COVID-19? documented as of this encounter Last Filed Vital Signs Vital Sign Reading Time Taken Comments Blood Pressure 118/76 04/06/2020 1:50 PM MANAGER BABY Pulse 93 04/06/2020 1:50 PM MANAGER BABY Temperature 36.6 C (97.9 F) 04/06/2020 1:50 PM MANAGER BABY Respiratory Rate 16 04/06/2020 1:50 PM MANAGER BABY Oxygen Saturation - - Inhaled Oxygen Concentration - - Weight 95.4 kg (210 lb 4.8 oz) 04/06/2020 1:50 PM MANAGER BABY Height 165.1 cm (5' 5") 04/06/2020 1:50 PM MANAGER BABY Body Mass Index 35 04/06/2020 1:50 PM MANAGER BABY documented in this encounter Progress Notes Nohelia Shen R, COMPLIANCE PARALEGAL - 04/06/2020 1:30 PM CST Chief complaint: No chief complaint on file. HPI CC: Follow Up Visit Taylor Victor is a 19 year old, , /White female. Patient's last menstrual period was 07/27/2019 (approximate). She is 36w2d with an intrauterine . Her estimated date of delivery is 05/02/2020, by Last Menstrual Period. She has no complaints today. She reports +FM and denies contractions, LOF and bleeding today. Patient denies current or past physical, sexual or emotional abuse. Histories OB History Para Term AB Living 1 SAB TAB Ectopic Multiple Live Births # Outcome Date GA Lbr Dano/2nd Weight Sex Delivery Anes PTL Lv 1 Current Past Medical History: Diagnosis Date Anemia of mother in , antepartum 03/09/2020 Asthma last flare up at age 15 [...] file Gets together: Not on file Attends rastafarian service: Not on file Active member of [...] acid (vitamin c), ferrous sulfate, and vit 34-ctrn-ruqwg-dha. Review of Systems Eyes: Negative for visual disturbance. Cardiovascular: Negative for leg swelling. Gastrointestinal: Negative for abdominal pain, nausea and vomiting. Genitourinary: Negative for vaginal bleeding, vaginal discharge and pelvic pain. Neurological: Negative for headaches. BP 118/76 (BP Location: Right arm, Patient Position: Sitting, BP CUFF SIZE: Adult Medium) | Pulse 93 | Temp 36.6 C (97.9 F) (Oral) | Resp 16 | Ht 5' 5" (1.651 m) | Wt 210 lb 4.8 oz (95.4 kg) | LMP 07/27/2019 (Approximate) | BMI 35.00 kg/m Pregravid BMI: 27.46 Physical Exam PHYSICAL: General Exam: Neurological: Normal Abdomen: Normal Extremities: Normal Pelvic Exam: Uterus: 36cm Weeks Assessment/Plan Supervision of high risk , antepartum (primary encounter diagnosis) Primigravida in third trimester Comment: Routine Visit Plan: SARS-COV-2 IGG, CBC WITH DIFF, GC & CHLAMYDIA AMPLIFIED ASSAY, GROUP B STREPTOCOCCUS BY PCR, POCT URINALYSIS W SPECIFIC GRAVITY Denies zika virus risk, signs and symptoms such as fever,rash,joint pain, conjunctivitis (red eyes), muscle pain, headaches; outside [place] travel to areas affected by zika, and FOB exposure to zika.Educated on use of mosquito repellent. Covid x12 screening done, screening results are negative. Anemia of mother in , antepartum Comment: patient taken vitamins, iron pills and vitamins c Plan: patient advised to continue to take medication as directed Overweight (BMI 25.0-29.9) Comment: BMI: 27.46 Plan: [...] problems of obesity on future pregnancies and/or retirement health. Return to clinic in 2 weeks. Discussed treatment options. Medications as ordered. Reviewed patient instructions and provided printed copy. This visit did not involve counseling and coordination that comprised more than 50% of the visit time. AMY Virgen 04/06/2020 2:16 PM GER BABY documented in this encounter Plan of Treatment Date Type Specialty Care Team Description 04/13/2020 Routine Visit OB Satellites Dari Shen FNP [address] [place], [place] [address] [phone] Name Type Priority Associated Diagnoses Date/Ti me SARS-COV-2 IGG LAB Routine Supervision of high risk 1 06/07/2019 1:49 PM , antepartum MANAGER BABY CBC WITH DIFF LAB Routine Supervision of high risk 1:49 PM , antepartum MANAGER BABY GC & CHLAMYDIA AMPLIFIED LAB Routine Supervision of h igh risk 04/06/2020 1:50 PM ASSAY , antepartum MANAGER BABY GROUP B STREPTOCOCCUS BY LAB Routine Supervision of h igh risk 04/06/2020 1:50 PM PCR , antepartum MANAGER BABY Health Maintenance Due Date Last Done Comments MENINGOCOCCAL B VACCINES (1 09/15/2020 Post poned from of 2 - Risk Bexsero 2-dose 09/16 ( or series) ) WELL CARE VISIT: -09/15/2020 09/16/2019 YEARS (yearly) CHLAMYDIA SCREENING 12/03/2020 12/04/2019, 09/16/2019, 09/16/2019 Depression Screening 02/17/2021 02/18/2020 DTaP,Tdap,and Td Vaccines 02/17/2030 02/18/2020, 11/07/2011 , (8 - Td) 10/30/2003, Additional history exists VARICELLA VACCINES Completed 06/09/2008, [...] Name Priority Date/Time Associated Diagnosis Comme nts POCT URINALYSIS Routine 04/06/2020 Supervision of high risk Results for this , antepartum proced ure are in the results section . documented in this encounter Results POCT URINALYSIS W SPECIFIC GRAVITY (04/06/2020) Pathologist Sig nature POCT U SP GRAV [...] risk , ante - Primary Primigravida in third trimester Anemia of mother in , antepartu m Anemia, antepartum Overweight (BMI 25.0-29.9) Overweight documented in this encounter Insurance Payer Benefit Plan / Subscriber ID Effective Phone Address T ype Group Dates [facility] [id number] 2019-Prese P O TIERRA X [facility] HEALTH [place] MOM nt [id number] [place], [place] [phone] 1 documented as of this encounter
--- OUTSIDE RECORDS SUMMARY | 2020-04-09 04:49 | XMS REPORT | Summary of Care ---
:1999 Author Organization [facility] Address [address] [place] [address] Care Team Providers Name Role Phone Dari Shen Primary Care Provider Reason for Visit Reason Comments ROUTINE VISIT Encounter Details Date Type Department Care Team Description 03/09[facility]2020 [facility] upervision of high risk , antepartum (Primary Dx); Visit AMY Weller Primigravida in second trimester; [address] [place] [address] Anemia of mother in , antepartum; [address] [place] Overweight (BMI 25.0-29.9) [place] [id number] Allergies No Known Allergiesdocumented as of this encounter (statuses as of 03/09/2020) Medications Medication Sig Dispensed Refills Start Date End Date Status vit Take 1 Packet by 30 Each 6 11/06/2019 Active 11-vjcp-cahjp-dha mouth daily. (SELECT-OB + DHA) 29 mg [...] as of this encounter (statuses as of 03/09/2020) Active Problems Problem Noted Date Anemia of [...] as of this encounter (statuses as of 03/09/2020) Resolved Problems Problem Noted Date Resolved Date Gonorrhea 2019 09/19/2019 documented as of this encounter (statuses as of 03/09/2020) Immunizations Name Administration Dates Next Due BCG [...] been in contact with No / Unsure 03/09/2020 1:15 PM VISUAL DEVELOPER someone who was confirmed or suspected to have Coronavirus / COVID-19? documented as of this encounter Last Filed Vital Signs Vital Sign Reading Time Taken Comments Blood Pressure 111/61 03/09/2020 1:15 PM VISUAL DEVELOPER Pulse 78 03/09/2020 1:15 PM VISUAL DEVELOPER Temperature 36.8 C (98.2 F) 03/09/2020 1:15 PM VISUAL DEVELOPER Respiratory Rate 16 03/09/2020 1:15 PM VISUAL DEVELOPER Oxygen Saturation - - Inhaled Oxygen Concentration - - Weight 89.7 kg (197 lb 11.2 oz) 03/09/2020 1:15 PM VISUAL DEVELOPER Height 165.1 cm (5' 5") 03/09/2020 1:15 PM VISUAL DEVELOPER Body Mass Index 32.9 03/09/2020 1:15 PM VISUAL DEVELOPER documented in this encounter Progress Notes Nohelia Shen, PRESS SETTER - 03/09/2020 1:00 PM CST Chief complaint: Chief Complaint Patient presents with ROUTINE VISIT HPI CC: Follow Up Visit Taylor Victor is a 19 year old, , /White female. Patient's last menstrual period was 07/27/2019 (approximate). She is 32w2d with an intrauterine . Her estimated date [...] file Gets together: Not on file Attends cheondoism service: Not on file Active member of [...] None Comment: last sexual intercourse 09/11/2019 Labs No new labs Radiology No new radiology. Allergies Taylor has No Known Allergies. Medications Taylor has a current medication list which includes the following prescription(s): ascorbic acid (vitamin c), ferrous sulfate, and vit 39-yays-rowei-dha. Review of Systems Eyes: Negative for visual disturbance. Cardiovascular: Negative for leg swelling. Gastrointestinal: Negative for abdominal pain, nausea and vomiting. Genitourinary: Negative for vaginal bleeding, vaginal discharge and pelvic pain. Neurological: Negative for headaches. BP 111/61 (BP Location: Right arm, Patient Position: Sitting, BP CUFF SIZE: Adult Medium) | Pulse 78 | Temp 36.8 C (98.2 F) (Oral) | Resp 16 | Ht 5' 5" (1.651 m) | Wt 197 lb 11.2 oz (89.7 kg)| LMP 07/27/2019 (Approximate) | BMI 32.90 kg/m Pregravid BMI: 27.46 Physical Exam PHYSICAL: General Exam: Neurological: Normal Abdomen: Normal Extremities: Normal Pelvic Exam: Uterus: 32cm Weeks Assessment/Plan Supervision of high risk , antepartum (primary encounter diagnosis) Primigravida in second trimester Comment: Routine Visit Plan: POCT URINALYSIS W SPECIFIC GRAVITY Denies zika virus risk, signs and symptoms such as fever,rash,joint pain, conjunctivitis (red eyes), muscle pain, headaches; outside [place] travel to areas affected by zika, and FOB exposure to zika.Educated on use of mosquito repellent. Covid x12 screening done, screening results are negative. Anemia of mother in , antepartum Comment: patient states Plan: patient educated to continue to monitor as directed Overweight (BMI 25.0-29.9) Comment: BMI: [...] problems of obesity on future pregnancies and/or exterminator health. Return to clinic in 2 weeks. Discussed treatment options. Medications as ordered. Reviewed patient instructions and provided printed copy. This visit did not involve counseling and coordination that comprised more than 50% of the visit time. AMY Virgen 03/09/2020 1:26 PM AL DEVELOPER documented in this encounter Plan of Treatment Date Type Specialty Care Team Description 03/23/2020 Routine Visit OB Satellites Dari Shen FNP [address] [place] [address] [phone] Health Maintenance Due Date Last Done Comments [...] Associated Diagnosis Comme nts POCT URINALYSIS Routine 03/09/2020 Supervision of high risk Results for this , antepartum proced ure are in the results section . documented in this encounter Results POCT URINALYSIS W SPECIFIC GRAVITY (03/09/2020) Pathologist Sig nature POCT U SP GRAV [...] Phone Address T ype Group Dates [facility] [id number] 2019-Francisco P O TIERRA X [facility] [facility] HEALTH PLAN MOM nt [id number] HEALTH PLAN [employer] [place], [place] [phone] 1 documented as of this encounter
--- OUTSIDE RECORDS SUMMARY | 2020-04-09 04:49 | XMS REPORT | Summary of Care ---
:2000 Author Organization [facility] Address [address] [place] [address] Care Team Providers Name Role Phone Dari Shen Primary Care Provider Reason for Visit Reason Comments Care Encounter Details Date Type Department Care Team Description 03/23/2020 Routine [facility] RMP- Nohelia Shen upervision of high risk , antepartum (Primary Dx); Visit AMY Weller Primigravida in third trimester; [address] [place] [address] Anemia of mother in , antepartum; [address] [place] Overweight (BMI 25.0-29.9) [place] [id number] [phone] Allergies No Known Allergiesdocumented as of this encounter (statuses as of 03/23/2020) Medications Medication Sig Dispensed Refills Start Date End Date Status vit Take 1 Packet by 30 Each 6 11/06/2019 Active 25-hfzv-luvjq-dha mouth daily. (SELECT-OB + DHA) 29 mg [...] as of this encounter (statuses as of 03/23/2020) Active Problems Problem Noted Date Anemia of [...] as of this encounter (statuses as of 03/23/2020) Resolved Problems Problem Noted Date Resolved Date Gonorrhea 2019 09/19/2019 documented as of this encounter (statuses as of 03/23/2020) Immunizations Name Administration Dates Next Due BCG [...] been in contact with No / Unsure 03/23/2020 12:52 PM COMMUNITY RELATIONS OFFICER someone who was confirmed or suspected to have Coronavirus / COVID-19? documented as of this encounter Last Filed Vital Signs Vital Sign Reading Time Taken Comments Blood Pressure 107/67 03/23/2020 12:52 PM COMMUNITY RELATIONS OFFICER Pulse 75 03/23/2020 12:52 PM COMMUNITY RELATIONS OFFICER Temperature 36.1 C (97 F) 03/23/2020 12:52 PM COMMUNITY RELATIONS OFFICER Respiratory Rate 16 03/23/2020 12:52 PM COMMUNITY RELATIONS OFFICER Oxygen Saturation - - Inhaled Oxygen Concentration - - Weight 92.2 kg (203 lb 4 oz) 03/23/2020 12:52 PM COMMUNITY RELATIONS OFFICER Height 165.1 cm (5' 5") 03/23/2020 12:52 PM COMMUNITY RELATIONS OFFICER Body Mass Index 33.82 03/23/2020 12:52 PM COMMUNITY RELATIONS OFFICER documented in this encounter Progress Notes Nohelia Shen FNP - 03/23/2020 12:45 PM CST Chief complaint: Chief Complaint Patient presents with Care HPI CC: Follow Up Visit Taylor Victor is a 19 year old, , /White female. Patient's last menstrual period was 07/27/2019 (approximate). She is 34w2d with an intrauterine . Her estimated date [...] file Gets together: Not on file Attends hinduism service: Not on file Active member of [...] acid (vitamin c), ferrous sulfate, and vit 02-dbkf-ugxkm-dha. Review of Systems Eyes: Negative for visual disturbance. Cardiovascular: Negative for leg swelling. Gastrointestinal: Negative for abdominal pain, nausea and vomiting. Genitourinary: Negative for vaginal bleeding, vaginal discharge and pelvic pain. Neurological: Negative for headaches. BP 107/67 (BP Location: Right arm, Patient Position: Sitting, BP CUFF SIZE: Adult Medium) | Pulse 75 | Temp 36.1 C (97 F) (Oral) | Resp 16 | Ht 5' 5" (1.651 m) | Wt 203 lb 4 oz (92.2 kg) | LMP 07/27/2019 (Approximate) | BMI 33.82 kg/m Pregravid BMI: 27.46 Physical Exam PHYSICAL: General Exam: Neurological: Normal Abdomen: Normal Extremities: Normal Pelvic Exam: Uterus: 34cm Weeks Assessment/Plan Supervision of high risk , antepartum (primary encounter diagnosis) Primigravida in third trimester Comment: Routine Visit Plan: SARS-COV-2 IGG Denies zika virus risk, signs and symptoms such as fever,rash,joint pain, conjunctivitis (red eyes), muscle pain, headaches; outside [place] travel to areas affected by zika, and FOB exposure to zika. Educated on use of mosquito repellent. Covid x12 screening done, screening results are negative. Anemia of mother in , antepartum Comment: patient Plan: patient encouraged to continue as directed Overweight (BMI 25.0-29.9) Comment: BMI: [...] problems of obesity on future pregnancies and/or [facility] health. Return to clinic in 2 weeks. Discussed treatment options. Medications as ordered. Reviewed patient instructions and provided printed copy. This visit did not involve counseling and coordination that comprised more than 50% of the visit time. AMY Virgen 03/23/2020 1:14 PM UNITY RELATIONS OFFICER documented in this encounter Plan of Treatment Name Type Priority Associated Diagnoses Order S chedule SARS-COV-2 IGG LAB Routine Supervision of high risk E xpected: 03/23/2020, , antepartum s: 03/23/2021 CBC WITH DIFF LAB Routine Supervision of high risk Ex pected: 03/23/2020, , antepartum s: 03/23/2021 GC & CHLAMYDIA AMPLIFIED LAB Routine Supervision of h igh risk Expected: 03/23/2020, ASSAY , antepartum s: 03/23/2021 GROUP B STREPTOCOCCUS BY LAB Routine Supervision of h igh risk Expected: 03/23/2020, PCR , antepartum s: 03/23/2021 Health Maintenance Due Date Last Done Comments [...] filedocumented in this encounter Visit Diagnoses Diagnosis Supervision of high risk , ante - Primary Primigravida in third trimester Anemia of mother in , antepartu m Anemia, antepartum Overweight (BMI 25.0-29.9) Overweight documented in this encounter Insurance Payer Benefit Plan / Subscriber ID Effective Phone Address T ype Group Dates [facility] [id number] 2019-Prese P O [employer]ER[employer] X [facility] [place] [id number] HEALTH PLAN [place], [place] [phone] documented as of this encounter
--- NOTE | 2020-04-09 07:44 | RAD REPORT ---
EXAM DESCRIPTION: CT - Head Brain Wo Cont - 04/09/2020 7:29 am CLINICAL HISTORY: PAIN, headache, dizziness and syncope, 36 weeks COMPARISON: No comparisons TECHNIQUE: Axial 5 mm thick images of the head were obtained without IV contrast. All CT scans are performed using dose optimization technique as appropriate and may include automated exposure control or mA/KV adjustment according to patient size. FINDINGS: No intracranial hemorrhage, mass, edema or shift of mid-line structures. No acute infarcti on changes seen. No abnormal extra-axial fluid collections. Ventricles are normal. No abnormal attenu ation detected along the transverse or superior sagittal sinuses. No globe or orbital content abnorma lity detected. Mastoid air cells and visualized portions of the paranasal sinuses are clear. No acute bony findings. IMPRESSION: Negative non-contrast CT head examination.
[2020-04-09 08:19] LABS: Urine Blood NEGATIVE (NEG); Urine Glucose NEGATIVE (NEG); Urine Protein NEGATIVE (NEG); Urine Specific Gravity 1.025 (1.005-1.030); Urine pH 6.5 (5.0-7.0)
[2020-04-09 08:19] LABS: Urine Specific Gravity 1.025 (1.005-1.030)
--- NOTE | 2020-04-09 13:21 | EDPHYS ---
[facility] Name: Taylor Ramos Age: 19 yrs Sex: Female : 2000 Arrival Date: 04/09/2020 Time: 04:51 Bed Waiting Private MD: ED Physician David Ackerman HPI: 04/09 06:25 This 19 yrs old Female presents to ER via Ambulatory with complaints of Fall karina Injury, Headache. 06:25 Details of fall: The patient fell from an upright position, while walking. Onset: The karina symptoms/episode began/occurred just prior to arrival. Associated injuries: The patient sustained injury to the head. Severity of symptoms: At their worst the symptoms were mild, in the emergency department the symptoms are unchanged. The patient has not experienced similar symptoms in the past. 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 - Social history:: Smoking status: Patient/guardian denies using tobacco. - Family history:: not pertinent. ROS: 06:25 Constitutional: Negative for fever, chills, and weight loss, Eyes: Negative for injury, karina pain, redness, and discharge, ENT: Negative for injury, pain, and discharge, Neck: Negative for injury, pain, and swelling, Cardiovascular: Negative for chest pain, palpitations, and edema, Respiratory: Negative for shortness of breath, cough, wheezing, and pleuritic chest pain, Back: Negative for injury and pain, : Negative for injury, bleeding, discharge, and swelling, MS/Extremity: Negative for injury and deformity, Skin: Negative for injury, rash, and discoloration, Psych: Negative for depression, anxiety, suicide ideation, homicidal ideation, and hallucinations, Allergy/Immunology: Negative for hives, rash, and allergies, Endocrine: Negative for neck swelling, polydipsia, polyuria, polyphagia, and marked weight changes, Hematologic/Lymphatic: Negative for swollen nodes, abnormal bleeding, and unusual bruising. 06:25 Abdomen/GI: Positive for abdominal distension. Exam: 06:25 Constitutional: This is a well developed, well nourished patient who is awake, alert, karina and in no acute distress. Head/Face: Normocephalic, atraumatic. Eyes: Pupils equal round and reactive to light, extra-ocular motions intact. Lids and lashes normal. Conjunctiva and sclera are non-icteric and not injected. Cornea within normal limits. Periorbital areas with no swelling, redness, or edema. ENT: Nares patent. No nasal discharge, no septal abnormalities noted. Tympanic membranes are normal and external auditory canals are clear. Oropharynx with no redness, swelling, or masses, exudates, or evidence of obstruction, uvula midline. Mucous membranes moist. Neck: Trachea midline, no thyromegaly or masses palpated, and no cervical lymphadenopathy. Supple, full range of motion without nuchal rigidity, or vertebral point tenderness. No Meningismus. Chest/axilla: Normal chest wall appearance and motion. Nontender with no deformity. No lesions are appreciated. Cardiovascular: Regular rate and rhythm with a normal S1 and S2. No gallops, murmurs, or rubs. Normal PMI, no JVD. No pulse deficits. Respiratory: Lungs have equal breath sounds bilaterally, clear to auscultation and percussion. No rales, rhonchi or wheezes noted. No increased work of breathing, no retractions or nasal flaring. Back: No spinal tenderness. No costovertebral tenderness. Full range of motion. Skin: Warm, dry with normal turgor. Normal color with no rashes, no lesions, and no evidence of cellulitis. MS/ Extremity: Pulses equal, no cyanosis. Neurovascular intact. Full, normal range of motion. Neuro: Awake and alert, GCS 15, oriented to person, place, time, and situation. Cranial nerves II-XII grossly intact. Motor strength 5/5 in all extremities. Sensory grossly intact. Cerebellar exam normal. Normal gait. 06:25 Abdomen/GI: Inspection: distension, that is moderate, gravid appearance, is noted, Bowel sounds: normal, Palpation: abdomen is soft and non-tender, Liver: no appreciated palpable abnormalities, Hernia: not appreciated. Vital Signs: 06:12 BP 103 / 86; Pulse 61; Resp 18; Temp 98.1; Pulse Ox 98% on R/A; Weight 95.25 kg (R); aj1 Height 5 ft. 5 in. (165.10 cm) (R); Pain 0/10; 06:12 Body Mass Index 34.95 (95.25 kg, 165.10 cm) aj1 MDM: 06:29 Differential diagnosis: closed head injury, contusion, fracture. Data reviewed: vital karina signs, nurses notes. Data interpreted: statistical programmer: rate is 61 beats/min, rhythm is regular. Test interpretation: by ED physician or midlevel provider:. Counseling: I had a detailed discussion with the patient and/or guardian regarding: the historical points, exam findings, and any diagnostic results supporting the discharge/admit diagnosis, lab results, radiology results, the need for outpatient follow up, for definitive care, an OB/Gyne specialist. 07:34 Patient medically screened. [facility] 04/09 06:03 Order name: Urine Dipstick-Ancillary (obtain specimen); Complete Time: 06:54 [facility] 04/09 06:48 Order name: FHT's; Complete Time: 06:53 [facility] Administered Medications: No medications were administered Disposition: 04/09/20 07:34 Discharged to Home. Impression: Fall due to bumping against object, related conditions, unspecified, third trimester, Superficial injury of head. - Condition is Stable. - Discharge Instructions: Head Injury, Adult, Fall Prevention in the Home, Qawj-fh-Xofy, Third Trimester of , Bicm-ts-Tnao, Head Injury, Adult, Yqnf-mp-Reio. - Prescriptions for Vitamin 27- 0.8 mg Oral Tablet - take 1 tablet by ORAL route once daily; 30 tablet. - Medication Reconciliation Form, Thank You Letter, Antibiotic Education, Prescription Opioid Use form. - Follow up: Private Physician; When: 2 - 3 days; Reason: Recheck today's complaints, Continuance of care, Re-evaluation by your physician. Follow up: Rui Bess; When: 2 - 3 days; Reason: Recheck today's complaints, Re-evaluation by your physician. - Problem is new. - Symptoms have improved. Signatures: Esperanza Bess RN RN aj1 Tati Hylton RN RN dm5 David Ackerman MD MD [facility] Corrections: (The following items were deleted from the chart) 06:14 06:03 Urine Test ordered. [facility] 07:57 07:34 04/09/2020 07:34 Discharged to Home. Impression: Fall due to bumping against dm5 object; related conditions, unspecified, third trimester; Superficial injury of head. Condition is Stable. Discharge Instructions: Head Injury, Adult, Fall Prevention in the Home, Euxl-yt-Bpoc, Third Trimester of , Pwok-de-Ckbn, Head Injury, Adult, Sire-ev-Dpie. Prescriptions for Vitamin 27-0.8 mg Oral Tablet - take 1 tablet by ORAL route once daily; 30 tablet. and Forms are Medication Reconciliation Form, Thank You Letter, Antibiotic Education, Prescription Opioid Use. Follow up: Private Physician; When: 2 - 3 days; Reason: Recheck today's complaints, Continuance of care, Re-evaluation by your physician. Follow up: Rui Bess; When: 2 - 3 days; Reason: Recheck today's complaints, Re-evaluation by your physician. Problem is new. Symptoms have improved. [facility]
--- NOTE | 2020-04-09 13:21 | ER ---
Nurse's Notes [facility] Name: Taylor Ramos Age: 19 yrs Sex: Female : 2000 Arrival Date: 04/09/2020 Time: 04:51 Bed Waiting Private MD: Diagnosis: Fall due to bumping against object; related conditions, unspecified, third trimester;Superficial injury of head Presentation: 04/09 06:12 Chief complaint: Patient states: Shes been having a headache since yesterday, then aj1 today she stood up and felt dizzy and fell to the groun, hitting her head. Denies LOC, denies vomiting. Patient is currently 36 weeks . Coronavirus screen: At this time, the client does not indicate any symptoms associated with coronavirus-19. Ebola Screen: Patient denies travel to an Ebola-affected area in the 21 days before illness onset. Initial Sepsis Screen: Does the patient meet any 2 criteria? No. Patient's initial sepsis screen is negative. Does the patient have a suspected source of infection? No. Patient's initial sepsis screen is negative. Risk Assessment: Do you want to hurt yourself or someone else? Patient reports no desire to harm self or others. Onset of symptoms was April 08, 2020. 06:12 Method Of Arrival: Ambulatory aj1 06:12 Acuity: MAIA 3 aj1 Triage Assessment: 06:15 General: Appears in no apparent distress. comfortable, Behavior is calm, cooperative, aj1 appropriate for age. Pain: Denies pain. EENT: No signs and/or symptoms were reported regarding the EENT system. Neuro: Level of Consciousness is awake, alert, obeys commands, Oriented to person, place, time, situation, Moves all extremities. Gait is steady, Speech is normal, Facial symmetry appears normal, Reports dizziness that has now resolved. Cardiovascular: Patient's skin is warm and dry. Respiratory: Airway is patent Respiratory effort is even, unlabored, Respiratory pattern is regular, symmetrical. GI: No signs and/or symptoms were reported involving the gastrointestinal system. : No signs and/or symptoms were reported regarding the genitourinary system. Derm: No signs and/or symptoms reported regarding the dermatologic system. Skin is pink, warm \T\ dry. normal. Musculoskeletal: No signs and/or symptoms reported regarding the musculoskeletal system. Circulation, motion, and sensation intact. 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 - Social history:: Smoking status: Patient/guardian denies using tobacco. - Family history:: not pertinent. Vital Signs: 06:12 BP 103 / 86; Pulse 61; Resp 18; Temp 98.1; Pulse Ox 98% on R/A; Weight 95.25 kg (R); aj1 Height 5 ft. 5 in. (165.10 cm) (R); Pain 0/10; 06:12 Body Mass Index 34.95 (95.25 kg, 165.10 cm) aj1 Vitals: 06:20 Heart Tones 144. aj1 ED Course: 04:51 Patient arrived in ED. am2 04:52 David Ackerman MD is Attending Physician. karina 06:14 Triage completed. aj1 06:15 Arm band placed on Patient placed in waiting room. aj1 07:34 Rui Bess MD is Referral Physician. karina 07:57 Tati Hylton, RN is Primary Nurse. dm5 Administered Medications: No medications were administered Outcome: 07:34 Discharge ordered by . karina 07:57 Patient left the ED. dm5 Signatures: Esperanza Bess RN RN aj Tati Hylton, RN RN dm5 David Ackerman MD MD cha Moreno, Amanda am
[2020-04-12 13:27] VITALS: BP 103/86; TEMP 98.1; O2SAT 98
== END 2020-04-09 07:57 | disposition home or self-care (01) ==
LOC: ER 04:46
DX: O9A.213 Injury, poisoning and certain other consequences of external causes complicating pregnancy, third trimester (principal); S09.90XA Unspecified injury of head, initial encounter; Z3A.00 Weeks of gestation of pregnancy not specified; W18.30XA Fall on same level, unspecified, initial encounter; Y93.01 Activity, walking, marching and hiking; Y92.9 Unspecified place or not applicable
CPT/HCPCS: 70450; 81003; 81025; 99282